=== PATIENT | female | born 1985 | race Caucasian/White ===

== ENCOUNTER 2018-05-16 10:45 | Emergency (ER) | payer SELFPAY ==
[~2018-05-16] VITALS: Ht 162.6 cm; Wt 62.7 kg
[2018-05-16] MEDS ORDERED: TRAMADOL HCL50 MG PO (12:04)
[2018-05-16] MEDS ORDERED: AMOXICILLIN500 MG PO (12:04)
[2018-05-16] MEDS ORDERED: MOTRIN800 MG PO (12:04)
[2018-05-16 12:15] VITALS: BP 123/82
== END 2018-05-16 12:15 | disposition home or self-care (01) | DRG 159 ==
LOC: ED 10:45
DX: K04.7 Periapical abscess without sinus (principal); K02.9 Dental caries, unspecified; S92.512A Displaced fracture of proximal phalanx of left lesser toe(s), initial encounter for closed fracture; W22.8XXA Striking against or struck by other objects, initial encounter

== ENCOUNTER 2019-12-05 | Emergency (ER) | payer OTHER ==
[~2019-12-05] MED LIST: AMOXICILLIN500 MG PO; MOTRIN800 MG PO; TRAMADOL HCL50 MG PO
[2019-12-05] MEDS ORDERED: FERR SULFATE325 MG PO (17:20)
[2019-12-05 18:07] LABS: HEMATOCRIT 34.5 % (37.0-47.0); HEMOGLOBIN 11.7 g/dl (12.0-16.0); IMMATURE GRANULOCYTES 0.3 % (0.0-5.0); MEAN CORPUSCULAR HGB 31.9 pG CALC (26.0-32.0); MEAN CORPUSCULAR HGB CONC 33.9 g/L CALC (32.0-36.0); NEUT# 7.06 thou/uL (2.00-7.15); RED BLOOD COUNT 3.67 mill/uL (4.20-5.60); RED CELL DISTRI WIDTH 12.3 % (11.5-15.5)
[2019-12-05 18:29] LABS: ANION GAP 13 (6-22 (CALC)); BUN 10 mg/dL (7-17); BUN/CREATININE RATIO 18 (12-20 (CALC)); CARBON DIOXIDE 25 mmol/l (22-30); CHLORIDE 104 mmol/l (95-108); CREATININE 0.6 mg/dL (0.5-1.0); GFR > 60 ML/MIN (>=60 (CALC)); GFR FOR AFR.AMER. > 60 ML/MIN (>=60 (CALC)); POTASSIUM 3.6 mmol/l (3.5-5.1); SODIUM 138 mmol/l (137-146)
== END 2019-12-05 21:27 | disposition home or self-care (01) ==
PROVIDERS: Family Medicine
DX: O20.0 Threatened abortion (principal); Z3A.09 9 weeks gestation of pregnancy

== ENCOUNTER 2019-12-10 | Emergency (ER) | payer OTHER ==
[~2019-12-10] MED LIST changes: +FERR SULFATE325 MG PO
[2019-12-10 09:19] LABS: IMMATURE GRANULOCYTES 0.5 % (0.0-5.0); MEAN CELL VOLUME 93.2 fL CALC (80.0-100.0); MEAN CORPUSCULAR HGB 32.1 pG CALC (26.0-32.0); MEAN CORPUSCULAR HGB CONC 34.4 g/L CALC (32.0-36.0); NEUT# 3.97 thou/uL (2.00-7.15); RED BLOOD COUNT 2.65 mill/uL (4.20-5.60); RED CELL DISTRI WIDTH 12.6 % (11.5-15.5)
[2019-12-10 09:20] LABS: HEMATOCRIT 24.7 % (37.0-47.0); HEMOGLOBIN 8.5 g/dl (12.0-16.0)
[2019-12-10 09:34] LABS: ANION GAP 10 (6-22 (CALC)); BUN 8 mg/dL (7-17); BUN/CREATININE RATIO 15 (12-20 (CALC)); CARBON DIOXIDE 28 mmol/l (22-30); CHLORIDE 105 mmol/l (95-108); CREATININE 0.6 mg/dL (0.5-1.0); GFR > 60 ML/MIN (>=60 (CALC)); GFR FOR AFR.AMER. > 60 ML/MIN (>=60 (CALC)); POTASSIUM 3.7 mmol/l (3.5-5.1); SODIUM 139 mmol/l (137-146)
== END 2019-12-10 11:03 | disposition home or self-care (01) ==
PROVIDERS: Family Medicine
DX: J06.9 Acute upper respiratory infection, unspecified (principal); O03.4 Incomplete spontaneous abortion without complication
CPT/HCPCS: J2790

== ENCOUNTER 2019-12-19 | Emergency (ER) | payer OTHER ==
[2019-12-19 12:43] LABS: HEMATOCRIT 29.8 % (37.0-47.0); HEMOGLOBIN 9.6 g/dl (12.0-16.0); IMMATURE GRANULOCYTES 0.4 % (0.0-5.0); MEAN CELL VOLUME 96.1 fL CALC (80.0-100.0); MEAN CORPUSCULAR HGB CONC 32.2 g/L CALC (32.0-36.0); NEUT# 6.32 thou/uL (2.00-7.15); RED BLOOD COUNT 3.1 mill/uL (4.20-5.60); RED CELL DISTRI WIDTH 12.9 % (11.5-15.5)
[2019-12-19 12:54] LABS: ACT PARTIAL THROMBO TIME 27.8 SECONDS (20.0-32.5); PROTHROMBIN TIME 10.1 SECONDS (9.0-12.5)
[2019-12-19 13:00] LABS: ALBUMIN 4.6 g/dL (3.2-5.0); ALKALINE PHOSPHATASE 72 u/l (38-126); ANION GAP 13 (6-22 (CALC)); BILIRUBIN, TOTAL 0.4 mg/dL (0.0-1.4); BUN 7 mg/dL (7-17); BUN/CREATININE RATIO 13 (12-20 (CALC)); CARBON DIOXIDE 27 mmol/l (22-30); CHLORIDE 102 mmol/l (95-108); CREATININE 0.6 mg/dL (0.5-1.0); GFR > 60 ML/MIN (>=60 (CALC)); GFR FOR AFR.AMER. > 60 ML/MIN (>=60 (CALC)); SGOT/AST 49 u/l (14-36); SODIUM 138 mmol/l (137-146); TOTAL PROTEIN 8.1 g/dL (6.3-8.2)
[2019-12-19 13:16] LABS: BETA-HCG, QUANT(RESULT NUMBER) 477 mIU/mL
== END 2019-12-19 14:40 | disposition home or self-care (01) ==
PROVIDERS: Emergency Medicine
DX: O03.9 Complete or unspecified spontaneous abortion without complication (principal)

== ENCOUNTER 2020-01-08 | Emergency (ER) | payer OTHER ==
[2020-01-08 17:20] LABS: HEMATOCRIT 35.4 % (37.0-47.0); IMMATURE GRANULOCYTES 0.4 % (0.0-5.0); MEAN CORPUSCULAR HGB 29.9 pG CALC (26.0-32.0); MEAN CORPUSCULAR HGB CONC 33.3 g/L CALC (32.0-36.0); NEUT# 7.52 thou/uL (2.00-7.15); RED BLOOD COUNT 3.95 mill/uL (4.20-5.60); RED CELL DISTRI WIDTH 12.8 % (11.5-15.5)
[2020-01-08 17:21] LABS: HEMOGLOBIN 11.8 g/dl (12.0-16.0); MEAN CELL VOLUME 89.6 fL CALC (80.0-100.0)
[2020-01-08 17:36] LABS: ALKALINE PHOSPHATASE 96 u/l (38-126); BUN 14 mg/dL (7-17); BUN/CREATININE RATIO 17 (12-20 (CALC)); CHLORIDE 107 mmol/l (95-108); CREATININE 0.8 mg/dL (0.5-1.0); ETHYL ALCOHOL 0 mg/dl (0-30); GFR > 60 ML/MIN (>=60 (CALC)); GFR FOR AFR.AMER. > 60 ML/MIN (>=60 (CALC)); POTASSIUM 3.2 mmol/l (3.5-5.1); SGOT/AST 23 u/l (14-36); SODIUM 138 mmol/l (137-146); TOTAL PROTEIN 8.6 g/dL (6.3-8.2)
[2020-01-08 17:39] LABS: ACT PARTIAL THROMBO TIME 27.6 SECONDS (20.0-32.5); D-DIMER 0.45 mg/L (0.19-0.60); PROTHROMBIN TIME 10.6 SECONDS (9.0-12.5)
[2020-01-08 17:43] LABS: ANION GAP 17 (6-22 (CALC)); BILIRUBIN, TOTAL 0.7 mg/dL (0.0-1.4); CARBON DIOXIDE 17 mmol/l (22-30)
[2020-01-08 17:44] LABS: MYOGLOBIN 45 ng/mL (0 - 62)
[2020-01-08 18:01] LABS: URINE BILIRUBIN - DIPSTICK NEGATIVE (NEGATIVE); URINE BLOOD DIPSTICK NEGATIVE (NEGATIVE); URINE COLOR YELLOW; URINE GLUCOSE - DIPSTICK NEGATIVE (NEGATIVE); URINE KETONE >=80 mg/dL (NEGATIVE); URINE LEUK ESTERASE NEGATIVE (NEGATIVE); URINE NITRITE - DIPSTICK NEGATIVE (Negative); URINE PH 7.5 (4.5-8.0); URINE PROTEIN - DIPSTICK NEGATIVE (NEG-TRACE); URINE UROBILINOGEN - DIPSTICK 0.2 E.U./dL (0.2)
[2020-01-08 18:05] LABS: BARBITURATES NEGATIVE (NEGATIVE); COCAINE NEGATIVE (NEGATIVE); METHADONE NEGATIVE (NEGATIVE); OXCYCODONE NEGATIVE (NEGATIVE); TETRAHYDROCANNABIONOL NEGATIVE (NEGATIVE); TRICYLIC ANTIDEPRESSANTS NEGATIVE (NEGATIVE)
== END 2020-01-08 18:47 | disposition home or self-care (01) ==
PROVIDERS: Family Medicine
DX: F15.10 Other stimulant abuse, uncomplicated (principal); I47.1 Supraventricular tachycardia; O03.9 Complete or unspecified spontaneous abortion without complication

== ENCOUNTER 2022-02-06 05:01 | Emergency (ER) | payer OTHER ==
[~2022-02-06] VITALS: Ht 160 cm; Wt 59.0 kg
[2022-02-06 05:10] VITALS: BP 137/89
[2022-02-06] MEDS ORDERED: LORTAB 1010 MG PO (05:25)
[2022-02-06] MEDS ORDERED: AMOXICILLIN500 MG PO (05:25)
[2022-02-06 05:30] VITALS: BP 126/95
[2022-02-06 05:55] VITALS: BP 126/95
== END 2022-02-06 05:55 | disposition home or self-care (01) ==
LOC: ED 05:01
DX: K04.7 Periapical abscess without sinus (principal); F17.200 Nicotine dependence, unspecified, uncomplicated; Z86.711 Personal history of pulmonary embolism

== ENCOUNTER 2022-06-27 22:34 | Emergency (ER) | payer OTHER ==
[~2022-06-27] VITALS: Ht 160 cm; Wt 61.4 kg
[~2022-06-27 22:34] MED LIST changes: +LORTAB 1010 MG PO
[2022-06-27 22:55] VITALS: BP 114/66
[2022-06-27 23:00] VITALS: BP 109/66
[2022-06-27 23:39] LABS: HEMATOCRIT 31.9 % (37.0-47.0); HEMOGLOBIN 10.6 g/dl (12.0-16.0); IMMATURE GRANULOCYTES 0.4 % (0.0-5.0); MEAN CELL VOLUME 90.1 fL CALC (80.0-100.0); MEAN CORPUSCULAR HGB 29.9 pG CALC (26.0-32.0); MEAN CORPUSCULAR HGB CONC 33.2 g/dL CAL (32.0-36.0); NEUT# 3.47 thou/uL (2.00-7.15); RED BLOOD COUNT 3.54 mill/uL (4.20-5.60); RED CELL DISTRI WIDTH 12.5 % (11.5-15.5)
[2022-06-28 01:44] LABS: URINE COLOR YELLOW
[2022-06-28 01:45] LABS: URINE BILIRUBIN - DIPSTICK NEGATIVE (NEGATIVE); URINE GLUCOSE - DIPSTICK NEGATIVE (NEGATIVE); URINE KETONE Negative (NEGATIVE); URINE PROTEIN - DIPSTICK NEGATIVE (NEG-TRACE)
[2022-06-28 01:46] LABS: URINE BLOOD DIPSTICK SMALL (NEGATIVE); URINE LEUK ESTERASE NEGATIVE (NEGATIVE); URINE NITRITE - DIPSTICK NEGATIVE (Negative)
[2022-06-28 01:50] LABS: URINE BACTERIA FEW hpf; URINE EPITHELIAL CELLS FEW EPI/hpf (0-FEW)
[2022-06-28 02:22] VITALS: BP 109/66
[2022-06-28 02:53] LABS: BUN 11 mg/dL (7-17)
[2022-06-28 02:54] LABS: ALBUMIN 3.9 g/dL (3.2-5.0); ANION GAP 12 (6-22 (CALC)); BILIRUBIN, TOTAL 0.3 mg/dL (0.0-1.4); BUN/CREATININE RATIO 16 (12-20 (CALC)); CARBON DIOXIDE 25 mmol/l (22-30); CHLORIDE 105 mmol/l (95-108); CREATININE 0.7 mg/dL (0.5-1.0); GFR FOR AFR.AMER. > 60 ML/MIN (>=60 (CALC)); GFR OTHER RACES > 60 ML/MIN (>=60 (CALC)); POTASSIUM 3.6 mmol/l (3.5-5.1); SGOT/AST 33 u/l (14-36); SODIUM 138 mmol/l (137-146); TOTAL PROTEIN 7.7 g/dL (6.3-8.2)
[2022-06-28 02:55] LABS: ALKALINE PHOSPHATASE 193 u/l (38-126); CPK 30 u/l (30-165)
== END 2022-06-28 02:29 | disposition home or self-care (01) ==
LOC: ED 22:34
PROVIDERS: Family Medicine
DX: F15.10 Other stimulant abuse, uncomplicated (principal); R21 Rash and other nonspecific skin eruption; Z20.822 Contact with and (suspected) exposure to COVID-19; Z86.711 Personal history of pulmonary embolism

== ENCOUNTER 2022-07-07 18:32 | Emergency (ER) | payer OTHER ==
[~2022-07-07] VITALS: Ht 160 cm; Wt 58.9 kg
[2022-07-07 19:21] LABS: HEMATOCRIT 29.9 % (37.0-47.0); HEMOGLOBIN 10.1 g/dl (12.0-16.0); IMMATURE GRANULOCYTES 0.2 % (0.0-5.0); MEAN CELL VOLUME 87.4 fL CALC (80.0-100.0); MEAN CORPUSCULAR HGB 29.5 pG CALC (26.0-32.0); MEAN CORPUSCULAR HGB CONC 33.8 g/dL CAL (32.0-36.0); NEUT# 2.9 thou/uL (2.00-7.15); RED BLOOD COUNT 3.42 mill/uL (4.20-5.60); RED CELL DISTRI WIDTH 12.8 % (11.5-15.5)
[2022-07-07 19:38] LABS: ALBUMIN 3.6 g/dL (3.2-5.0); ALKALINE PHOSPHATASE 187 u/l (38-126); ANION GAP 10 (6-22 (CALC)); BILIRUBIN, TOTAL 0.3 mg/dL (0.0-1.4); BUN 7 mg/dL (7-17); BUN/CREATININE RATIO 11 (12-20 (CALC)); CARBON DIOXIDE 27 mmol/l (22-30); CHLORIDE 105 mmol/l (95-108); CREATININE 0.7 mg/dL (0.5-1.0); GFR FOR AFR.AMER. > 60 ML/MIN (>=60 (CALC)); GFR OTHER RACES > 60 ML/MIN (>=60 (CALC)); POTASSIUM 3.7 mmol/l (3.5-5.1); SGOT/AST 41 u/l (14-36); SODIUM 138 mmol/l (137-146); TOTAL PROTEIN 7.4 g/dL (6.3-8.2)
[2022-07-07] MEDS ORDERED: PREDNISONE20 MG PO (20:08)
[2022-07-07] MEDS ORDERED: NAPROXEN500 MG PO (20:08)
[2022-07-07 20:11] VITALS: BP 126/102
== END 2022-07-07 20:24 | disposition home or self-care (01) ==
LOC: ED 18:32
PROVIDERS: Nurse Practitioner
DX: R51.9 Headache, unspecified (principal); R21 Rash and other nonspecific skin eruption; F17.200 Nicotine dependence, unspecified, uncomplicated; Z86.711 Personal history of pulmonary embolism; Z20.822 Contact with and (suspected) exposure to COVID-19